=== PATIENT | male | born 1980 | race Caucasian/White ===

== ENCOUNTER 2018-04-28 07:01 | Emergency (ER) | payer SELFPAY ==
[2018-04-28 07:02] VITALS: BP 162/90; PULSE 95; RESP 16; TEMP 36.8; O2SAT 98; BMI 34.9
--- NOTE | 2018-04-28 07:17 | ED.VISSUMM ---
- ER Visit Summary Date of Service: 04/28/18 Chief Complaint: [Back pain] History of Present Illness: The patient is a 38 M [presents the emergency department complaint of back pain that started yesterday. Patient states that he was at his job at [employer]] which involves lifting parts weighing 85 pounds. Patient states that he picked up a part and turned to him move it and developed sudden onset of severe pain in his low back. Patient states that he has had back issues for years. He has had a total of 3 MRIs. No surgeries on his back. Patient states that his back tends to act up about every 6 months or so. Patient denies any change in bowel or bladder function. He denies weakness in the extremities. At times he has pain radiating down the back of his right leg to about the knee. Patient does not want to file under workman's comp as he just started the job. Physical Examination: [HEENT-PERRLA, EOMI. Cranial nerves II through XII grossly intact. TMs clear. Mucous membranes moist. No adenopathy. Cardiovascular-regular rate and rhythm without murmur or ectopy Lungs-clear to auscultation, chest wall stable without crepitus or subcu emphysema Abdomen-normoactive bowel sounds, soft, nontender, no rebound or rigidity, no peritoneal signs. Back exam-patient has diffuse tenderness palpation over the lower lumbar spine paraspinal musculature. There is no erythema or warmth noted to his back. Deep tendon reflexes are plus 2 out of 4 bilaterally at the patella and Achilles. Patient has normal sensation to light touch bilaterally. Patient has negative straight leg raise bilaterally. Extremities-intact ?4, normal range of motion, normal pulses, atraumatic] Test Results: [None indicated. There was no direct trauma and no clinical signs and symptoms of cauda equina.] Emergency Department Course and Treatment: [Patient was medicated with Dilaudid, Toradol, and Norflex.] Treatment Plan: [Patient will be given a prescription for Naprosyn, [place], and Flexeril.] Disposition: [Discharged home in stable condition. Patient did not want me to give him any work restrictions. 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 Patient advised to return if worsening pain, weakness the extremities, change of bowel or bladder function, or condition should worsen anyway.] Impression: [Lumbar strain] This note was generated with [employer] dictation software. It may contain incorrect words, spelling, and punctuation that were not noted in review of the chart prior to signing ED Disposition - Plan for ED Patient: Chief Complaint: Back Referrals: Care Physician,No Primary [Primary Care Provider] -
--- NOTE | 2018-04-28 07:23 | DCINST.ED_ITS ---
ED Disposition - Plan for ED Patient: Chief Complaint: Back Instructions: ED Sprain Strain Lumbar Prescriptions: Hydrocodone/Acetaminophen [[place] 5-325 Tablet] 1 - 2 ea PO 4X/DAY PRN PRN 5 Days #20 tab PRN Reason: Pain Naproxen [Naprosyn] 500 mg PO BID PRN #20 tab Cyclobenzaprine [Flexeril] 10 mg PO TID PRN #20 tab PRN Reason: Muscle Spasm Referrals: Care Physician,No Primary [Primary Care Provider] - Kyle Patterson DO [NON CLINICAL AFFILIATE] - 5-7 Days
[2018-04-28] MEDS: HYDROmorphone 1 MG/ML Syringe IM (07:27)
[2018-04-28] MEDS: Ketorolac 60 MG/2 ML Vial IM (07:27)
[2018-04-28] MEDS: Orphenadrine 60 MG/2 ML Ampul IM (07:27)
== END 2018-04-28 08:01 | disposition home or self-care (01) ==
PROVIDERS: Emergency Provider Emergency Medicine
DX: S39.012A Strain of muscle, fascia and tendon of lower back, initial encounter (principal); X50.0XXA Overexertion from strenuous movement or load, initial encounter; Y93.9 Activity, unspecified; Y92.89 Other specified places as the place of occurrence of the external cause; Y99.0 Civilian activity done for income or pay; J45.909 Unspecified asthma, uncomplicated; Z72.0 Tobacco use
CPT/HCPCS: 96372; 99282

== ENCOUNTER 2018-05-01 09:22 | Emergency (ER) | payer SELFPAY ==
[2018-05-01 09:23] VITALS: BP 140/84; PULSE 95; RESP 17; TEMP 37.2; O2SAT 97; BMI 34.9
--- NOTE | 2018-05-01 09:27 | RAD_ITS ---
STUDY: X-RAY CHEST REASON FOR EXAM: Male, 38 years old. Chest pain, shortness of breath, cough TECHNIQUE: PA and lateral views of the chest. COMPARISON: Prior study of 10/26/2013 FINDINGS: awake overnight monitor leads are present. The lungs are clear and expanded. There is no demonstrated pleural abnormality. Normal size heart. Normal mediastinum and kvng. Normal visualized pulmonary arteries. Normal visualized aortic arch and descending thoracic aorta. Normal visualized thoracic spine. Normal visualized ribs, clavicles, and shoulders. There is no demonstrated abnormality of the visualized soft tissue structures of the upper abdomen. RAD/Chest PA and Lateral IMPRESSION: Normal x-ray examination of the chest. Electronically Signed: Hao Martins MD at 10:09 EDT , Service support ,
--- NOTE | 2018-05-01 09:27 | EKG12_ITS ---
Test Reason : CP Blood Pressure : / mmHG Vent. Rate : 088 BPM Atrial Rate : 088 BPM P-R Int : 140 ms QRS Dur : 074 ms QT Int : 358 ms P-R-T Axes : 065 064 048 degrees QTc Int : 433 ms Normal sinus rhythm Normal ECG Confirmed by HUGO FAIR, JESSY ([id number]), order editor SHAHRAM AGUILA ([id number] on 05/02/2018 2:10:18 PM Referred By: TATI Confirmed By:JESSY ARIAS MD
--- NOTE | 2018-05-01 09:39 | ED.VISSUMM ---
- ER Visit Summary Date of Service: 05/01/18 Chief Complaint: Cough, fever and chest pain History of Present Illness: The patient is a 38 M past medical history of degenerative disc disease in his back and asthma. Patient states he was in the ER this past week to have IM injections for acute on chronic back pain. Was doing well. On he said he started feeling poorly. And yesterday and Wednesday he started developing a nonproductive cough. Fever of 102. Some shortness of breath and chest pain. Chest pain is primarily with coughing and deep breathing. He denies any history of DVT or PE. He has had no recent travel, surgery, hospitalization or immobilization. He denies any calf pain, swelling, leg pain or hemoptysis. Significant family history of cardiac disease but he is never had any cardiac disease. Physical Examination: Well-appearing young male. Vital signs are stable currently is afebrile. Pulse ox is 97% on room air no signs of ataxia. H EENT exam unremarkable. Neck nontender no lymphadenopathy. Lungs dry cough with a few scattered expiratory wheezes. I do not appreciate any rales nor rhonchi. Heart regular rhythm no murmur. Chest wall nontender. Abdomen soft nontender. No peritoneal signs. He is moving all 4 extremities. They are neurovascularly intact. Calves are nontender without edema or cords. He has equal and symmetrical radial pulses. Normal net web developer strength and dorsi and plantar flexion. Back nontender. Neurologically is awake and alert with no focal motor deficits. Test Results: EKG normal sinus rhythm rate 88 with no acute abnormality. No signs of ischemia or dysrhythmia. Unchanged from prior EKG from 2013. Chest x-ray 2 views read both by myself and radiologist shows no acute abnormality. Normal cardiac silhouette. No pneumonia. CBC White count 11. Hemoglobin 14. Electrolytes unremarkable normal creatinine and gap. Troponin normal. Emergency Department Course and Treatment: Patient will undergo cardiac workup due to his complaint of chest pain clinic I think he has a respiratory tract infection. Will be treated with a DuoNeb aerosol. Repeat exam at 1027 the patient is doing well. Improved post aerosol. He and I discussed discharge and outpatient therapy. We also discussed all his test results. Treatment Plan: Treatment for viral bronchitis. Prednisone daily for 5 days. Inhaler. Disposition: Discharge Impression: Acute Viral bronchitis Chest pain This note was generated with Dragon dictation software. It may contain incorrect words, spelling, and punctuation that were not noted in review of the chart prior to signing ED Disposition - Plan for ED Patient: Chief Complaint: Chest Pain Referrals: Care Physician,No Primary [Primary Care Provider] -
[2018-05-01 09:40] VITALS: PULSE 82; RESP 18
[2018-05-01] MEDS: Ipratropium/Albuterol Sulfate 3 ML AMPUL.NEB INHALATION (09:40)
--- NOTE | 2018-05-01 09:43 | ED.DCSUM_ITS ---
- ER Visit Summary Date of Service: 05/01/18 Chief Complaint: Cough, fever and chest pain History of Present Illness: The patient is a 38 M past medical history of degenerative disc disease in his back and asthma. Patient states he was in the ER this past week to have IM injections for acute on chronic back pain. Was doing well. On he said he started feeling poorly. And yesterday and Wednesday he started developing a nonproductive cough. Fever of 102. Some shortness of breath and chest pain. Chest pain is primarily with coughing and deep breathing. He denies any history of DVT or PE. He has had no recent travel, surgery, hospitalization or immobilization. He denies any calf pain, swelling, leg pain or hemoptysis. Significant family history of cardiac disease but he is never had any cardiac disease. Physical Examination: Well-appearing young male. Vital signs are stable currently is afebrile. Pulse ox is 97% on room air no signs of ataxia. H EENT exam unremarkable. Neck nontender no lymphadenopathy. Lungs dry cough with a few scattered expiratory wheezes. I do not appreciate any rales nor rhonchi. Heart regular rhythm no murmur. Chest wall nontender. Abdomen soft nontender. No peritoneal signs. He is moving all 4 extremities. They are neurovascularly intact. Calves are nontender without edema or cords. He has equal and symmetrical radial pulses. Normal senior analysis specialist strength and dorsi and plantar flexion. Back nontender. Neurologically is awake and alert with no focal motor deficits. Test Results: EKG normal sinus rhythm rate 88 with no acute abnormality. No signs of ischemia or dysrhythmia. Unchanged from prior EKG from 2013. Chest x- ray 2 views read both by myself and radiologist shows no acute abnormality. Normal cardiac silhouette. No pneumonia. CBC White count 11. Hemoglobin 14. Electrolytes unremarkable normal creatinine and gap. Troponin normal. Emergency Department Course and Treatment: Patient will undergo cardiac workup due to his complaint of chest pain clinic I think he has a respiratory tract infection. Will be treated with a DuoNeb aerosol. Repeat exam at 1027 the patient is doing well. Improved post aerosol. He and I discussed discharge and outpatient therapy. We also discussed all his test results. Treatment Plan: Treatment for viral bronchitis. Prednisone daily for 5 days. Inhaler. Disposition: Discharge Impression: Acute Viral bronchitis Chest pain This note was generated with Dragon dictation software. It may contain incorrect words, spelling, and punctuation that were not noted in review of the chart prior to signing ED Disposition - Plan for ED Patient: Chief Complaint: Chest Pain Referrals: Care Physician,No Primary [Primary Care Provider] -
[2018-05-01 09:48] LABS: Absolute Lymphocyte Count 1.34 X10^3/ul (0.83-4.51); Absolute Neutrophil Count 8.4 X10^3/uL (2.0-7.7); Basophil# 0.06 X10^3/uL; Basophil% 0.5 % (0-1); Eosinophil# 0.22 X10^3/uL; Hematocrit 44.4 % (40-54); Hemoglobin 14.6 g/dl (13.0-16.5); Lymphocyte # 1.34 X10^3/ul (4.0); Lymphocyte % 12.2 % (19-41); Mean Corp Hgb Conc 32.9 g/gl (32-36); Mean Corpuscular Hgb 30.7 pg (27.0-32.0); Mean Corpuscular Volume 93.3 fL (80-94); Mean Platelet Vol. 10.2 fl (6.2-12.0); Monocyte# 0.95 X10^3/uL; Monocyte% 8.7 % (0-10); Neutrophil # 8.37 X10^3/uL (2.7-7.7); Neutrophil % 76.5 % (47-70); POSITIVE COUNT NO; POSITIVE DIFFERENTIAL NO; POSITIVE MORPHOLOGY NO; Platelet Count 281 K/mm3 (150-450); RBC Distribution Width CV 13.2 % (11.6-14.6); RBC Distribution Width SD 45.5 fl (35.1-43.9); Red Blood Count 4.76 M/mm3 (4.6-6.2)
[2018-05-01 10:00] LABS: BUN 14 mg/dL (7-18); BUN/Creat Ratio 15.6 RATIO (10-20); Calcium,Total 8.1 mg/dL (8.5-10.1); Chloride 109 mmol/L (98-107); EST Glomerular Filtration Rate 100 mL/min (>60); Est Glom Filt Rate - Afr Amer 121 mL/min (>60); Estimated Creatinine Clearance 133.01 ml/min; Glucose 81 mg/dL (74-106); Potassium 4.1 mmol/L (3.5-5.1); Sodium Level 141 mmol/L (136-145)
[2018-05-01 10:01] LABS: Anion Gap 7 (5-15)
--- NOTE | 2018-05-01 10:29 | ED.DEP ---
ED Disposition - Plan for ED Patient: Disposition: Home or Assisted Living Chief Complaint: Chest Pain Instructions: ED URI Viral Prescriptions: Albuterol Sulfate [Proventil Hfa] 6.7 gm IH Q4H PRN PRN #1 [id number].ad PRN Reason: Wheezing Azithromycin [Zithromax Z-Jem] 250 mg PO UD #1 box Prednisone [Deltasone] 40 mg PO DAILY 5 Days #10 tab Referrals: Osorio Killian MD [STAFF PHYSICIAN] - 1 Week if not improving Additional Instructions: Use inhaler 2 puffs every 2-4 hours as needed for wheezing or shortness of breath. Prednisone 40 mg/day for the next 5 days to decrease inflammation in your lungs. This will also decrease the wheezing. I write you for Zithromax Z-Jem. More than likely this is a viral infection and the antibiotic will do you know good. I would not fill it or even started collection not improving for 1 week. Must stop smoking!!
[2018-05-01 10:38] VITALS: BP 137/59; PULSE 71; RESP 16; O2SAT 98
== END 2018-05-01 10:39 | disposition home or self-care (01) ==
PROVIDERS: Emergency Provider Emergency Medicine
DX: J20.8 Acute bronchitis due to other specified organisms (principal); R07.9 Chest pain, unspecified; J45.909 Unspecified asthma, uncomplicated; M54.9 Dorsalgia, unspecified; G89.29 Other chronic pain
CPT/HCPCS: 71046; 80048; 84484; 85025; 93005; 94640; 99284; A4216

== ENCOUNTER 2018-12-27 09:57 | Emergency (ER) | payer OTHER, SELFPAY ==
[2018-12-27 09:59] VITALS: BP 147/95; PULSE 86; RESP 19; TEMP 36.2; O2SAT 99; BMI 33.1
--- NOTE | 2018-12-27 10:14 | ED.DCSUM_ITS ---
- ER Visit Summary Date of Service: 12/27/18 Chief Complaint: [Back pain] History of Present Illness: The patient is a 38 M [presents the emergency department complaint of back pain that started this morning. Patient states that he woke up and had severe pain in his back with movement. He denies any injury or trauma. Patient states that he has a history of some chronic back pain issues over the last 5 or 6 years. Patient saw a back surgeon few years ago after his last MRI but it was determined that he would try cortisone injections in his back and that seemed to help for at least a year. Patient states that about every 6 to 7 months he has an exacerbation of his pain. 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 He denies any pain rating down his legs at this time. He denies any weakness the extremities. He denies any change of bowel bladder function. He denies saddle anesthesia. He has had no fevers or recent illness. He denies urinary symptoms.] Physical Examination: [] HEENT-PERRLA, EOMI. Cranial nerves II through XII grossly intact. TMs clear. Mucous membranes moist. No adenopathy. Cardiovascular-regular rate and rhythm without murmur or ectopy Lungs-clear to auscultation, chest wall stable without crepitus or subcu emphysema Abdomen-normoactive bowel sounds, soft, nontender, no rebound or rigidity, no peritoneal signs. Back exam-patient has diffuse tenderness over lumbar spine and lumbar paraspinal musculature especially on the left. He has negative straight leg raises. Deep tendon reflexes are plus 2 out of 4 bilaterally at the patella and Achilles. Patient has normal 5 extension bilaterally. Patient has normal sensation to light touch. Extremities-intact ?4, normal range of motion, normal pulses, atraumatic Test Results: [None indicated] Emergency Department Course and Treatment: [Patient was medicated with Toradol, Dilaudid, and Norflex.] Treatment Plan: [Patient will be given a prescription for Flexeril, Naprosyn, and [place]. Patient will be written off for 3 days as his work will not allow restrictions for personal injury or illness.] Disposition: [Discharged home in stable condition] Impression: [Acute exacerbation of chronic back pain] This note was generated with Dragon dictation software. It may contain incorrect words, spelling, and punctuation that were not noted in review of the chart prior to signing ED Disposition - Plan for ED Patient: Referrals: Care Physician,No Primary [Primary Care Provider] -
--- NOTE | 2018-12-27 10:16 | DCINST.ED_ITS ---
ED Disposition - Plan for ED Patient: Instructions: ED Neck Back Pain General Prescriptions: Hydrocodone Bitart/[place] 5-325 [[place] 5MG-325MG] 1 tab PO Q4H PRN PRN 2 Days #14 tab PRN Reason: Pain Naproxen [Naprosyn] 500 mg PO BID PRN #20 tab cycloBENZAPRine HCl [Flexeril] 10 mg PO TID PRN #20 tab PRN Reason: Muscle Spasm Referrals: Care Physician,No Primary [Primary Care Provider] - Bakari Hennnig MD [STAFF PHYSICIAN] - 3-5 Days
[2018-12-27] MEDS: Ketorolac 60 MG/2 ML Vial IM (10:21)
[2018-12-27] MEDS: HYDROmorphone 1 MG/ML Syringe IM (10:21)
[2018-12-27] MEDS: Orphenadrine 60 MG/2 ML Ampul IM (10:22)
[2018-12-27 10:47] VITALS: BP 121/74; PULSE 62; RESP 15; O2SAT 98
== END 2018-12-27 10:47 | disposition home or self-care (01) ==
LOC: ED 10:16
PROVIDERS: Emergency Provider Emergency Medicine
DX: M54.9 Dorsalgia, unspecified (principal); G89.29 Other chronic pain; J45.909 Unspecified asthma, uncomplicated; Z72.0 Tobacco use
CPT/HCPCS: 96372; 99282

== ENCOUNTER 2019-01-28 11:16 | Emergency (ER) | payer OTHER, SELFPAY ==
[2019-01-28 11:17] VITALS: BP 160/82; PULSE 98; RESP 18; TEMP 36.6; O2SAT 96; BMI 34.2
[2019-01-28 11:37] VITALS: O2SAT 98
--- NOTE | 2019-01-28 12:11 | RAD_ITS ---
STUDY: X-RAY - PELVIS AND RIGHT HIP REASON FOR EXAM: Male, 38 years old. Fall down, right hip pain TECHNIQUE: 3 views of the pelvis and hip. COMPARISON: None. FINDINGS: There is a non-specific bowel gas pattern. Normal visualized soft tissue structures. Moderate right and small left iliac crest osteochondromas are identified. Normal bilateral superior and inferior pubic rami. Normal pubic symphysis. Normal bilateral ischial tuberosities. Normal visualized femoral head. Normal acetabulum. Normal hip joint. RAD/HIP, UNI W/ Pelvis 2-3 Views IMPRESSION: 1. No fracture or malalignment. 2. Bilateral iliac crest osteochondromas. Electronically Signed: Mir Rojas MD at 13:31 EDT , Service support ,
--- NOTE | 2019-01-28 12:12 | ED.DCSUM_ITS ---
- ER Visit Summary Date of Service: 01/28/19 Chief Complaint: Fall History of Present Illness: The patient is a 38 M who presents with injury to his right hip that began after a fall yesterday. Patient slipped and fell and landed on his right side. Patient complains of pain over his right hip area. Patient also admits to some mild pain over his right wrist and elbow. Patient denies any head injury or loss of consciousness. Patient denies any paresthesias or weakness. Patient states he has been using ice to the area with minimal relief. Patient denies any other injuries. Physical Examination: Vital signs are stable. Patient is afebrile. Patient is in no acute distress. Musculoskeletal exam reveals tenderness and mild ecchymosis over the lateral aspect of the right hip. There is no obvious deformity noted. Range of motion was limited in internal and external rotation of the right lower extremity secondary to pain. There is good hip flexion and extension. There is minimal tenderness over the right wrist and right elbow. There is full range of motion of the right wrist and elbow. Cranial nerves II through XII are intact. There are no focal motor or sensory deficits noted. Test Results: X-rays of the right hip were obtained. There is no acute fracture. There are osteochondromas of the pelvis bilaterally. Emergency Department Course and Treatment: Patient was instructed to continue using ice to the area. Patient was instructed to continue using his Naprosyn as needed for pain. Patient was instructed to follow-up with his primary care physician in 5 to 7 days. Patient understood and was agreeable with the plan. All questions were answered. Disposition: Discharge home Impression: Right hip contusion This note was generated with [employer] dictation software. It may contain incorrect words, spelling, and punctuation that were not noted in review of the chart prior to signing ED Disposition - Plan for ED Patient: Disposition: Home or Assisted Living Diagnosis: Contusion of right hip, initial encounter Instructions: Hip Contusion Referrals: Care Physician,No Primary [Primary Care Provider] -
== END 2019-01-28 14:03 | disposition home or self-care (01) ==
PROVIDERS: Emergency Provider Emergency Medicine
DX: S70.01XA Contusion of right hip, initial encounter (principal); M25.531 Pain in right wrist; M25.521 Pain in right elbow; D16.8 Benign neoplasm of pelvic bones, sacrum and coccyx; W01.0XXA Fall on same level from slipping, tripping and stumbling without subsequent striking against object, initial encounter; Y93.9 Activity, unspecified; Y92.9 Unspecified place or not applicable; J45.909 Unspecified asthma, uncomplicated; F17.200 Nicotine dependence, unspecified, uncomplicated
CPT/HCPCS: 73502; 99282

== ENCOUNTER 2019-02-22 00:05 | Emergency (ER) | payer OTHER, SELFPAY ==
[2019-02-22 00:06] VITALS: BP 151/96; PULSE 74; RESP 18; TEMP 36.8; O2SAT 97; BMI 35.2
--- NOTE | 2019-02-22 00:19 | ED.VISSUMM ---
- ER Visit Summary Date of Service: 02/22/19 Chief Complaint: Back pain History of Present Illness: The patient is a 38 M who presents with back pain. He has a history of chronic back pain and has a daily level of pain that he states is tolerable. He did have epidural injections a few years ago which helped for about 8 months. Today while lifting heavy parts at work he developed increased lower back pain. He has radiation of the right leg which is also chronic. No numbness tingling or weakness. No fevers or abdominal pain. No urinary retention or fecal incontinence. He took naproxen and hydrocodone at home without significant relief. No fevers chest pain shortness of breath. Review of systems otherwise negative. Physical Examination: Afebrile vitals normal No distress Patient was ambulatory into the emergency department Heart regular rate and rhythm Lungs clear Abdomen soft nontender nondistended Patient has bilateral paraspinal lumbar tenderness Straight leg raise negative bilaterally 5 out of 5 dorsiflexion, plantarflexion, EHL Normal sensation light touch Test Results: Not indicated Emergency Department Course and Treatment: Patient was treated with intramuscular Toradol and Norflex. Patient he will be discharged to follow-up as an outpatient. He understands to return for new or worsening symptoms. Treatment Plan: [] Disposition: Discharge Impression: Lumbosacral strain This note was generated with [employer] dictation software. It may contain incorrect words, spelling, and punctuation that were not noted in review of the chart prior to signing ED Disposition - Plan for ED Patient: Referrals: Care Physician,No Primary [Primary Care Provider] -
--- NOTE | 2019-02-22 00:22 | ED.DEP ---
ED Disposition - Plan for ED Patient: Instructions: Back Sprain/Strain Referrals: Care Physician,No Primary [Primary Care Provider] -
[2019-02-22] MEDS: Orphenadrine 60 MG/2 ML Ampul IM (00:26)
[2019-02-22] MEDS: Ketorolac 60 MG/2 ML Vial IM (00:26)
--- NOTE | 2019-02-22 00:33 | ED.DEP ---
ED Disposition - Plan for ED Patient: Instructions: Back Sprain/Strain Referrals: Care Physician,No Primary [Primary Care Provider] - Finesse Steele MD [STAFF PHYSICIAN] -
[2019-02-22 00:56] VITALS: BP 140/77; PULSE 87; RESP 17; O2SAT 99
== END 2019-02-22 00:56 | disposition home or self-care (01) ==
LOC: ED 00:38
PROVIDERS: Emergency Provider Emergency Medicine
DX: S39.012A Strain of muscle, fascia and tendon of lower back, initial encounter (principal); X50.0XXA Overexertion from strenuous movement or load, initial encounter; Y93.89 Activity, other specified; Y92.89 Other specified places as the place of occurrence of the external cause; Y99.0 Civilian activity done for income or pay; G89.29 Other chronic pain; J45.909 Unspecified asthma, uncomplicated; Z72.0 Tobacco use
CPT/HCPCS: 96372; 99282

== ENCOUNTER → 2020-03-19 14:14 | Outpatient (CLI) | payer MEDICAID, SELFPAY ==
[2020-03-19 14:11] VITALS: BMI 37.5
--- NOTE | 2020-03-19 14:15 | RAD_ITS ---
STUDY: X-RAY - LUMBAR SPINE REASON FOR EXAM: Male, 39 years old. LBP TECHNIQUE: 4 view(s) of the lumbar spine were obtained. COMPARISON: Previous study of 10/15/2010 FINDINGS: Normal lumbar lordosis. There is no substantial scoliosis. There is a normal alignment of the vertebrae. There is endplate spondylosis of T11 and T12 with narrowing of the T11-12 disc space. There is mild endplate spondylosis of L4 and L5. There is severe narrowing of the L4-5 disc space with sclerosis of the adjacent endplates. There is mild narrowing of the L3-4 and L5-S1 disc spaces. There is no demonstrated fracture. The soft tissue structures are unremarkable. RAD/L/S Spine Min 4 Views IMPRESSION: Degenerative changes of the spine, as detailed above. Disc space narrowing at the L3-4 level is new in the interval. There has been minimal further decrease in disc spacing at the L4-5 and L5-S1 levels. Electronically Signed: Hao Martins MD at 23:52 EDT , Service support ,
== END ==
PROVIDERS: Referring Provider Orthopaedic Surgery; Visit Provider Orthopaedic Surgery
DX: M54.5 Low back pain (principal)
CPT/HCPCS: 72110

== ENCOUNTER 2020-11-14 09:30 | Outpatient (RCR) | payer MEDICAID, SELFPAY ==
--- NOTE | 2020-10-04 14:27 | HP.PTEVAL_ITS ---
Patient's Visit Information ANA DO is a 40 year old M referred to Physical Therapy by Dr. Carolyn Boyce MD with a diagnosis of S/P L4-S1 LAMINECTOMY. Date of Evaluation: 10/04/20 Physical Therapist: Ralph Shelton, PT, Cert MDT, OCS - Visit Plan Frequency: 2x /Week Duration: 4 Weeks Plan: S/P LUMBAR LAMINECTOMY 07/30/20. PT INTERVETIONS LUMBAR ROM,POSTURAL EX'S,DLS,LE EXTREMITY FLEXABLITY ,PHYSICAL RECONDTIONING,BLE STRENGTEHNING - Subjective This 40 y/o male presents tp physical therapy with s/p laminectomy L4-5 on 07/30/20 at [facility] done by Dr Sam. Patient most recently seen DR 8 weeks post surgery and recommended PT.Patient has had 2006 lumbar pain had multiple intervetions with PT ,epidural. Patient had MRI showed HNP,stenosis. Patient had radicular symptoms left lower extremities . After surgery leg pain is better back pain is same,occassional burning RLE. Jessi;l/bladder -. Coughing/sneezing -. Patient symptoms affects sleeping also has sleep apnea.No abnormal night pain. Aggraveting factors driving,sitting ,bending ,lifting. Alleviating factors MEDS. Patient back surgery affects ability to due job demnads and housework tasks. Patient symptoms affects QOL. SOCIAL: lives with parenst. VOCATION: unemployed - Pain Left Back Pain Intensity (Out of 10): 5 Pain Intensity Range: 10 - Objective POSTURE: mild foward posture. GAIT: reciprocal pattern. PALAPTION:midl tenderness paraspinals. NEURO: intact reflexes L3-4,L4-5,L5-S1 2/3. FLEXABLITY: hams mod tight. LUMBAR ROM: flexion mod loss,extemsion mod loss ,side glides miln loss. MMT: quad/hams 4/5,hip flexion ,abduction 4-/5 ,ankle 5/5 - Special Tests L/S Slump test left side: Negative L/S Slump test right side: Negative L/S Left Straight Leg Raise: Negative L/S Right Straight Leg Raise: Negative - Goals Goal 1:: Patient to be I with HEP Goal Time Frame: 4-6 Weeks Goal 2:: Patient to improve posture/body mechanics for function. Goal Time Frame: 4-6 Weeks Goal 3:: Patient to improve lumbar ROM for function of recovery. Goal Time Frame: 4-6 Weeks Goal 4:: Patient to decrease back pain by 60% or > to improve function. Goal Time Frame: 4-6 Weeks Goal 5:: Patient to improve back owestry score by 5 points or> to improve QOL Goal Time Frame: 4-6 Weeks - Rehabilitation Potential Physical Therapy Diagnosis: Patient underwent lumbar laminectomy L4-S1 with back pain ,poor lumbar ROM ,tight hamstrings and deconditioned with uanble to RTW thus will bemifit from skilled PT. Rehabilitation Potential: Good - Anticipated Interventions Patient/Client Instruction: Educate patient on: Condition, Plan of Care For the Purpose of:: To decrease pain, To increase ROM, To improve muscle performance and motor function, To improve ability to perform ADL's, To increase tolerance to activity/condition/position, To improve ability of physical actions for home/community/work/leisure, To improve health of tissue, To decrease soft tissue restriction, To increase flexibility/ROM, To reduce risk of recurrence, To improve ability to perform tasks related to life management Therapeutic Exercise to Include: Strength training, Body mechanics, Postural training, Flexibilty training, Active ROM, Dynamic Lumbar Stabilization For the Purpose of:: To decrease pain, To increase ROM, To improve muscle performance and motor function, To improve ability to perform ADL's, To increase tolerance to activity/condition/position, To improve ability of physical actions for home/community/work/leisure, To improve health of tissue, To decrease soft tissue restriction, To increase flexibility/ROM, To improve ability to perform tasks related to life management TENS: Yes IF ES: Yes Cryotherapy (ice pack, ice massage): Yes Thermo therapy (hot pack): Yes For the Purpose of:: To decrease pain, To improve nutrient delivery to tissue, To increase oxygenation perfusion, To improve health of tissue, To decrease soft tissue restriction Thank you for the opportunity to evaluate your patient. For Medicare and Medicare HMO plans, please review the plan of care and approve it. It will need to be FAXED BACK to us at [phone] for Medicare purposes. For Medicare only, by signing this I certify the plan of care. Please let me know if there are questions or concerns regarding this plan of care. Physician Signature: Date:
--- NOTE | 2021-04-29 07:44 | HP.PT.NRP ---
ANA DO was seen in my office for initial evaluation on 10/04/20. The following Plan of Care was established for this patient: Initial Frequency: 2x /Week Initial Duration: 4 Weeks Patient/Client Instruction: Educate patient on: Condition, Plan of Care For the Purpose of:: To decrease pain, To increase ROM, To improve muscle performance and motor function, To improve ability to perform ADL's, To increase tolerance to activity/condition/position, To improve ability of physical actions for home/community/work/leisure, To improve health of tissue, To decrease soft tissue restriction, To increase flexibility/ROM, To reduce risk of recurrence, To improve ability to perform tasks related to life management Therapeutic Exercise to Include: Strength training, Body mechanics, Postural training, Flexibilty training, Active ROM, Dynamic Lumbar Stabilization For the Purpose of:: To decrease pain, To increase ROM, To improve muscle performance and motor function, To improve ability to perform ADL's, To increase tolerance to activity/condition/position, To improve ability of physical actions for home/community/work/leisure, To improve health of tissue, To decrease soft tissue restriction, To increase flexibility/ROM, To improve ability to perform tasks related to life management TENS: Yes IF ES: Yes Cryotherapy (ice pack, ice massage): Yes Thermo therapy (hot pack): Yes For the Purpose of:: To decrease pain, To improve nutrient delivery to tissue, To increase oxygenation perfusion, To improve health of tissue, To decrease soft tissue restriction This patient was last seen in our office . Pertinent comments regarding their Physical therapy will appear below: This patient underwent s/p lumbar laminectomy with progression of lumbar ROM, strengthening and DLS ,thus is d/c At this point I will be discontinuing this patient from physical therapy. I would be happy to see this patient again in the future if found appropriate by the physician. Thank you! Ralph Shelton, PT, Cert MDT, OCS Balance/Gait/Functional tests - Balance/Special Test Scores Oswestry Low Back Score: 8
== END 2020-11-14 19:00 | disposition home or self-care (01) ==
LOC: PT 09:30
PROVIDERS: Referring Provider Orthopaedic Surgery; Visit Provider Orthopaedic Surgery
DX: Z98.890 Other specified postprocedural states (principal)
CPT/HCPCS: 97110; 97162

== ENCOUNTER → 2021-01-28 12:18 | Outpatient (CLI) | payer MEDICAID, SELFPAY ==
[2021-01-01 08:48] VITALS: BMI 37.5
--- NOTE | 2021-01-28 12:18 | MRI_ITS ---
STUDY: MRI LUMBAR SPINE WITH AND WITHOUT CONTRAST REASON FOR EXAM: Male, 40 years old. s/p laminectomy, pain worsening, new right leg pain TECHNIQUE: Standardized fat and water weighted pulse sequences were obtained in the sagittal and axial planes. IV yes yes was administered for the contrast portion of the examination. COMPARISON: X-ray dated 01/01/2021 FINDINGS: Normal lumbar lordosis. There is no substantial scoliosis. Normal conus medullaris that terminates at the T12/L1. L1-2: There is minimal disc space narrowing and endplates spondylosis. Mild disc bulge small central protrusion and facet arthropathy without significant central canal or foraminal stenosis. L2-3: There is mild disc space narrowing and endplates spondylosis. Mild minimal disc bulge and mild foraminal arthropathy without significant central canal or foraminal stenosis. L3-4: There is moderate disc space narrowing and endplates spondylosis. Mild disc bulge and facet arthropathy with mild central canal stenosis. There is inferior directed right paracentral extrusion (8 x 6 x 15 mm) with mild right lateral recess narrowing. Mild right and mild left foraminal stenosis. L4-5: There is severe disc space narrowing, endplates spondylosis and fatty replacement. Moderate disc bulge with right central protrusion and facet arthropathy with moderate right lateral recess narrowing. There is a decompression laminectomy. No significant central canal stenosis. Moderate right and mild left foraminal stenosis. L5-S1: There is moderate disc space narrowing and endplates spondylosis. There is a decompression anatomy. Moderate disc osteophyte complex with small central protrusion without significant central canal stenosis. Mild right and moderate left foraminal stenosis. Normal visualized sacral ala. Normal visualized paraspinous soft tissue structures. MRI/Spine Lumbar W/WO Contrast IMPRESSION: L3/L4: Small right disc extrusion with mild right lateral narrowing. L4/L5: Disc protrusion with moderate right lateral recess narrowing. Laminectomy. L5/S1: Laminectomy. Moderate left foraminal stenosis. Electronically Signed: Iker Farmer MD at 13:40 EDT Tel , Service support ,
--- NOTE | 2021-01-28 12:32 | RAD_ITS ---
STUDY: X-RAY - ORBITS REASON FOR EXAM: Male, 40 years old. HX METAL - PRE MRI TECHNIQUE: view(s) of the orbits were obtained. COMPARISON: None. FINDINGS: Normal bilateral orbits without a metallic orbital foreign body. Normal visualized facial bones. There is a 1.8 cm mucosal polyp or retention cyst at the base of the right maxillary sinus. The soft tissue structures are unremarkable. RAD/Orbits for Foreign Body IMPRESSION: No demonstrated metallic orbital foreign body. The patient is cleared for an MRI examination. Electronically Signed: Mendez Gant MD at 12:56 EDT , Service support ,
== END ==
PROVIDERS: PCP Nurse Practitioner Family; Referring Provider Orthopaedic Surgery; Visit Provider Orthopaedic Surgery
DX: M51.36 Other intervertebral disc degeneration, lumbar region (principal); M54.16 Radiculopathy, lumbar region; Z98.890 Other specified postprocedural states
CPT/HCPCS: 70030; 72158; A9575

== ENCOUNTER → 2021-04-23 13:41 | Outpatient (CLI) | payer MEDICAID, SELFPAY ==
[2021-04-23 17:19] LABS: Amphetamine Urine VISTA NEGATIVE (<1000 ng/mL); Barbiturate Urine VISTA NEGATIVE (< 200 ng/mL); Benzodiazepine Urine VISTA NEGATIVE (< 200 ng/mL); Cocaine Urine VISTA NEGATIVE (< 300 ng/mL); Ecstacy Urine VISTA NEGATIVE (< 500 ng/mL); Methadone Urine VISTA NEGATIVE (< 300 ng/mL); PCP Urine VISTA NEGATIVE (< 25 ng/mL); THC Urine VISTA NEGATIVE (< 50 ng/mL); Vista UDS pH Range 5
== END ==
PROVIDERS: PCP Nurse Practitioner Family; Referring Provider Anesthesiology Pain Medicine; Visit Provider Anesthesiology Pain Medicine
DX: F11.20 Opioid dependence, uncomplicated (principal)
CPT/HCPCS: 80307

== ENCOUNTER → 2023-06-11 | Outpatient (CLI) | payer MEDICAID, SELFPAY ==
--- NOTE | 2023-06-11 12:22 | CT_ITS ---
STUDY: CT CHEST WITHOUT CONTRAST REASON FOR EXAM: Male, 43 years old. ABN STRESS. Cardiac over read examination. RADIATION DOSAGE (If Supplied By Facility): CTDIvol = ( 59.85 ) mGy, DLP = ( 2257.72 ) mGycm TECHNIQUE: Transaxial imaging was performed without the administration of intravenous contrast material. Individualized dose optimization techniques were used for this CT. COMPARISON: No relevant priors. FINDINGS: CHEST The lungs are normal. There is no demonstrated pleural abnormality. Normal heart and pericardium. Normal mediastinum. Normal hilar regions. Normal unenhanced pulmonary arteries. Normal aorta arch and descending thoracic aorta. Normal osseous structures. Diffuse fatty infiltration of the liver. Small hiatal hernia. CT/Limited Chest CT Cardiac Only IMPRESSION: Normal unenhanced CT chest. Fatty infiltration of the liver. Small hiatal hernia. Electronically Signed: Mendez Gant MD at 14:12 EST ,
[2023-06-11 12:54] VITALS: BP 150/100; PULSE 72; RESP 18; TEMP 36.6; O2SAT 95; BMI 43.1
[2023-06-11 13:10] VITALS: BP 165/87; PULSE 85
[2023-06-11] MEDS: Nitroglycerin SL (ED/IMG/CATH) 0.4 MG TABLET SL (13:10)
[2023-06-11] MEDS: 0.9% Saline Lock 10 ML Syringe IV (13:15)
--- NOTE | 2023-06-14 16:22 | CCTA.WCONT ---
CCTA w/Cont Coronary Arteries Date of Study:: 06/11/23 Abnormal stress test Coronary Calcium Scoring: High-resolution Computed Tomographic imaging of the chest was performed on [06/11/2023], with particular attention paid to the coronary arteries. Intravenous contrast agent was administered per protocol and images reconstructed and displayed. LEFT MAIN CORONARY ARTERY: Arising from the left main coronary cusp with no significant plaquing noted bifurcating to left anterior descending artery and left circumflex artery [] LEFT ANTERIOR DESCENDING CORONARY ARTERY: Mild atherosclerotic plaquing noted in this vessel [] LEFT CIRCUMFLEX CORONARY ARTERY: No significant atherosclerotic plaquing noted [] RIGHT CORONARY ARTERY: Dominant vessel with proximal to mid calcification noted with mild diffuse disease noted throughout [] [] CORONARY CALCIUM SCORE: Not performed Conclusion: Mild atherosclerotic plaquing noted in the LAD, focal calcification noted in the dominant right coronary artery with mild to moderate plaquing []
== END | disposition home or self-care (01) ==
LOC: CT 12:21
PROVIDERS: PCP Registered Nurse; Referring Provider Nurse Practitioner Family; Visit Provider Nurse Practitioner Family
DX: R94.39 Abnormal result of other cardiovascular function study (principal)
CPT/HCPCS: 75574; 76380; Q9967